=== PATIENT | male | born 1965 | race Two or more races ===

== ENCOUNTER 2023-07-20 07:01 | Emergency (ER) | payer SELFPAY ==
[~2023-07-20] VITALS: Ht 172.7 cm; Wt 90.0 kg
[2023-07-20 07:03] VITALS: BP 0/0; PULSE 0; RESP 0; O2SAT 0
== END 2023-07-20 07:35 ==
LOC: ER 07:31
DX: I46.9 Cardiac arrest, cause unspecified (principal); R06.02 Shortness of breath; I10 Essential (primary) hypertension; Z88.0 Allergy status to penicillin
CPT/HCPCS: 31500; 99291